=== PATIENT | male | born 1975 | race African-American/Black ===

== ENCOUNTER 2016-11-27 16:54 | Inpatient (IN) ==
[2016-11-27] MEDS ORDERED: ALBUTEROL/IPRATROPIUM 3 ML NEB RESP TX STA (17:15)
--- NOTE | 2016-11-27 17:46 | Emergency Department Note ---
Yoel Sepulveda Brooke, am scribing for, and in the presence of, Jamie Oleary MD 17:37. Mamta Sepulveda Phillip K, MD, personally performed the services described in this documentation, ascribed by Roseline Diallo in my presence, and it is both accurate and complete [id number] . Arrival - Arrival Chief Complaint: Shortness of Breath Stated Complaint: transfer from [facility], asthma ED Nursing Triage Note: PT TRANSFERRED FROM [facility] FOR EVALUATION OF ASTHMA EXACERBATION. PT HAS RECEIVED MULTIPLE ALBUTEROL NEBS SINCE 0900 THIS AM. ROOM AIR SAT 93% ON ARRIVAL. Mode of Arrival: Stretcher Limitations: No Limitations Source: Patient, EMS, RN Notes Reviewed Time Seen by Provider: 11/27/16 17:27 - History of Present Illness HPI Narrative: Patient is a 41 year old male brought into the ED by EMS, from [facility], with c/o asthma exacerbation. He has a history of asthma. Patient went to [facility] around 0600 this morning feeling short of breath and says they gave him two Albuterol treatments. He says he felt better after the treatments so they discharged him. Patient says a little while after arriving home, he went outside and become short of breath again so he went back to [facility]. His serum magnesium level was low so he was given two grams of magnesium. He was also given a dose of steroids and 250 Solu-Medrol. He says he has a a "little" cough but denies any fever. Patient says his last asthma exacerbation was about a year ago. He also has PMHx of HTN and NIDDM. His Primary Care Provider is Dr. Rodriguez. Onset (ago): day(s) (1) Allergies/Adverse Reactions: Allergies Allergy/AdvReac Type Severity Reaction Status Date / Time No Known Allergies Allergy Verified 11/27/16 17:07 Review of System - Review of System 12 point system: reviewed and no additional remarkable complaints except as stated - Review of System Constitutional: Absent: fever Respiratory: Present: cough, other (shortness of breath- asthma exacerbation). Absent: respiratory distress Skin: Absent: rash Medical,Surgical,& Family Hx - Medical History Cardio: History of: Hypertension Endocrine: History of: Diabetes Mellitus (NIDDM) Respiratory: History of: Asthma - Social History Smoking Status: Never smoker Frequency of Alcohol Use: None Type of Drug Use: None Exam Vital Signs: Vital Signs Temperature 97.8 F 11/27/16 17:29 Pulse Rate 109 H 11/27/16 17:33 Respiratory Rate 23 11/27/16 17:33 Blood Pressure 151/98 11/27/16 17:29 O2 Sat by Pulse Oximetry 93 L 11/27/16 16:54 - General General appearance: alert, in no apparent distress, obese (morbidly) - Head Head exam: Present: atraumatic, normocephalic - Eye Eye exam: Present: normal appearance, PERRL, EOMI - ENT ENT exam: Present: normal exam - Neck Neck exam: Present: normal inspection - Chest Chest inspection: Present: normal inspection, symmetric chest wall rise - Respiratory Respiratory exam: Present: wheezes (few expiratory wheezes) - Cardiovascular Cardiovascular exam: Present: normal rhythm, tachycardia, normal heart sounds - Abdominal Exam Abdominal exam: Present: soft. Absent: distention, tenderness - Extremities Exam Extremities exam: Present: normal inspection - Back Exam Back exam: Present: normal inspection - Neurological Exam Neurological exam: Present: alert, oriented X3 - Psychiatric Psychiatric exam: Present: normal affect, normal mood - Skin Skin exam: Present: warm, dry, intact, normal color Results - Labs Lab Results: I have reviewed the patients labs (Labs from [facility] were reviewed patient had a low magnesium otherwise his CBC was normal.) - Diagnostic Findings Procedure: Chest x-ray: image reviewed by me (X-rays at [facility] showed no abnormalities.) Disposition Clinical Impression: Asthma with exacerbation Case discussed with: patient Condition: Guarded Additional Instructions: Admit to the hospitalist.
[2016-11-27] MEDS ORDERED: ONDANSETRON 4 MG/2 ML VIAL IV PRN (17:57)
[2016-11-27] MEDS ORDERED: DEXTROSE 50% 25 GM/50 ML VIAL IV PRN ×2 (17:57)
[2016-11-27] MEDS ORDERED: ACETAMINOPHEN 325 MG TABLET PO PRN (17:57)
[2016-11-27] MEDS ORDERED: GLUCAGON 1 MG VIAL IM PRN ×2 (17:57)
[2016-11-27] MEDS ORDERED: LEVALBUTEROL 0.63 MG/3 ML NEB RESP TX PRN (18:01)
--- NOTE | 2016-11-27 18:06 | Hospitalist History & Physical ---
Assessment and Plan (1) Hypertension Status: Acute Current Visit: Yes (2) Diabetes Status: Acute Current Visit: Yes (3) Asthma with exacerbation Status: Acute Assessment and plan: Our plan for this patient 1. Admit patient to our service 2. Scheduled steroid doses 3. Home meds as appropriate 4. Pulmonary consult 5. Xopenex treatments instead of albuterol treatments secondary to tachycardia 6. Accu-Cheks before meals and at bedtime and sliding scale as needed since patient's been placed on steroids 7. counseled the patient on the need to not smoke marijuana Current Visit: Yes History of Present Illness Chief complaint: Shortness of breath History of present illness: Mr. Estevez is a 41 year old male with past medical history significant for asthma hypertension and diabetes who is in his normal state of health till this morning. Patient woke up short of breath and wheezing. He took a breathing treatment. Then took a shower soon thereafter he got short of breath again and had to take an additional breathing treatment. Patient went to [facility] and was given 2 more breathing treatments and discharged. He subsequently got short of breath after he got discharged and went back up to the hospital. At this time they gave him steroids. Patient was transferred to our hospital for further evaluation and pulmonary consult. I was consulted to admit him. Patient was wheezing upon arrival to our emergency room but currently it per my exam was no longer wheezing. Patient is satting 95% on 2 L room air. Patient is a very obese individual weighing 204 kg. We will admit him to a MedSurg floor from the emergency room. Allergies Allergy/AdvReac Type Severity Reaction Status Date / Time No Known Allergies Allergy Verified 11/27/16 17:07 Medical,Surgical,& Family Hx - Medical History Cardio: History of: Hypertension Endocrine: History of: Diabetes Mellitus (NIDDM) Respiratory: History of: Asthma - Surgical History Additional Surgical History: None - Family History Family History: Reports;: Family Cancer, Family Heart Disease - Social History Smoking Status: Never smoker Frequency of Alcohol Use: None Type of Drug Use: None 12 point system: reviewed and no additional remarkable complaints except as stated Exam - Constitutional Vitals: Period Temp Pulse Resp BP Sys/Zhao Pulse Ox Last 24 Hr 97.8 F-97.8 F 108-115 20-23 151-151/98-98 93 - General General appearance: alert, in no apparent distress, obese (morbidly) - Head Head exam: Present: atraumatic, normocephalic - Eye Eye exam: Present: normal appearance, PERRL, EOMI - ENT ENT exam: Present: normal exam - Neck Neck exam: Present: normal inspection - Chest Chest inspection: Present: normal inspection, symmetric chest wall rise - Respiratory Respiratory exam: Present: Grossly clear currently but was wheezing earlier per ER exam - Cardiovascular Cardiovascular exam: Present: normal rhythm, tachycardia, normal heart sounds - Abdominal Exam Abdominal exam: Present: soft. Absent: distention, tenderness - Extremities Exam Extremities exam: Present: normal inspection - Back Exam Back exam: Present: normal inspection - Neurological Exam Neurological exam: Present: alert, oriented X3 - Psychiatric Psychiatric exam: Present: normal affect, normal mood - Skin Skin exam: Present: warm, dry, intact, normal color Results - Labs Labs: Labs from outside facility glucose 96 BUN 11 creatinine 0.7 calcium 9.2 sodium 141 potassium 4 3.6 chloride 99 bicarb 32 white count 4.3 hemoglobin 14.5 hematocrit 46 platelets 222
--- NOTE | 2016-11-27 18:29 | XRay Report ---
XR chest 2V Indication: Shortness of breath. Comparison: Chest x-ray 11/27/2016 Technique: PA and lateral chest x-ray was performed. Findings: The heart size appears within normal limits. Pulmonary vasculature demonstrates no specific abnormality. Hilar structures demonstrate fairly symmetric appearance. The lungs appear clear. Bones and soft tissues demonstrate no evidence of acute pathology. Impression: 1. No active cardiopulmonary disease. 11/27/2016 6:22 PM PROCEDURE INTERPRETED AT [facility] DEPARTMENT OF RADIOLOGY Final Report Signed by: Dr. Sandip Nair
[2016-11-27] MEDS: LEVALBUTEROL 1.25 MG/3 ML NEB RESP TX SCH (19:00)
[2016-11-27] MEDS: INSULIN REGULAR 100 UNIT/ML SUBCUT SCH (21:20)
[2016-11-28] MEDS: methylPREDNISolone SOD SUC 125 MG/2 ML VIAL IV SCH ×2 (00:33→14:14)
[2016-11-28] MEDS: LEVALBUTEROL 1.25 MG/3 ML NEB RESP TX SCH ×4 (01:27→18:55)
[2016-11-28 07:48] LABS: Basophils % 0.1 % (0.0-0.8); Hematocrit 47.3 VOL% (42.0-52.0); Immature Granulocytes % 0.5 %; Immature Granulocytes Absolute 0.04 #; Lymphocytes # 0.8 10*3/uL (1.4-4.0); Lymphocytes % 9.4 % (21.2-54.2); Mean Corpuscular HGB Conc 31.7 GM/DL (32-36); Mean Corpuscular Hemoglobin 26 PG (27-34); Mean Platelet Volume 11.4 FL (9.6-12.0); Monocytes # 0.2 10*3/uL (0.11-0.8); Monocytes % 2.2 % (1.7-12.7); Neutrophils # 7.2 10*3/uL (1.4-7.4); Neutrophils % 87.8 % (38.7-73.9); Platelet Count 245 T/CUMM (130-400); Red Cell Distribution Width 16.5 % (9.3-17.3); White Blood Count 8.2 T/CUMM (4-12)
[2016-11-28 08:18] LABS: Albumin 4.1 G/DL (3.4-5.0); Bilirubin,Total 0.5 MG/DL (0.2-1.0); Calcium 9.5 MG/DL (8.5-10.1); Osmolality,Calculated 278.5 MOS/KG (273-304); Total Protein 8.1 G/DL (6.4-8.3)
[2016-11-28] MEDS: PANTOPRAZOLE 40 MG TABLET PO SCH (09:31)
[2016-11-28] MEDS: ENOXAPARIN 40 MG/0.4 ML SYRINGE SUBCUT SCH (09:31)
[2016-11-28] MEDS: INSULIN REGULAR 100 UNIT/ML SUBCUT SCH ×4 (09:32→20:31)
--- NOTE | 2016-11-28 11:05 | Hospitalist Progress Note ---
Assessment and Plan (1) Asthmatic bronchitis Status: Acute Assessment and plan: From the clinical picture this is instigated by environmental allergens. I did query the patient has to possibility of exposure to mold which he does not acknowledge. Allergic bronchospastic aspergillosis is one problem that can happen with asthmatic. That should be looked at longitudinally and the patient will be vigilant. Current Visit: Yes (2) Asthma with exacerbation Status: Acute Assessment and plan: Patient will continue on aggressive beta 2 agonists and ipratropium bromide and also systemic steroids with Solu-Medrol IV. Add Singulair to his treatment because that may be what he will need for steroid reduction in his treatment. His body habitus puts him at risk for possible sleep apnea which does not seem to be in the picture of oral diagnoses he has. Get him out of bed to chair and ambulate possibly we will send him home in the next 24-48 hrs. Current Visit: Yes (3) Hypertension Status: Acute Assessment and plan: Resume home medication Current Visit: Yes (4) Diabetes Status: Acute Assessment and plan: Resume home medications, point of care should sugars should be done at mealtime and nightly. We use intermediate insulin for coverage. I expect sugars to be higher now that he is on Solu-Medrol. Current Visit: Yes Qualifiers: Diabetes mellitus type: type 2 Diabetes mellitus complication status: without complication Diabetes mellitus terminal system operator insulin use: without terminal system operator use Qualified Code(s): E11.9 - Type 2 diabetes mellitus without complications Hospitalist: Subjective Interval history: Patient has been seen interviewed and examined and chart has been reviewed. Admitted in the last 24 hours;41-year-old gentleman with a history of asthma they treated him with 2 intervention was then slated to go home. reportedly he was admitted to the emergency room at [facility] by the time he got home his asthma kicked him again. That time went back to the hospital and was transferred here with status asthmaticus. Has history of asthma never been told he had COPD. At home he is on the nebulized albuterol and ipratropium bromide also MDI albuterol and uses Advair. Reports going to the emergency room of this 3 times a year is been admitted to the hospital before but does not require intubation. He is not on Singulair Exam - Constitutional Vitals: Period Temp Pulse Resp BP Sys/Zhao Pulse Ox Last 24 Hr 98.1 F-99.3 F 76-108 16-25 129-147/68-108 89-100 General appearance: morbidly obese - Head Head exam: Present: normocephalic, atraumatic - Eye Eye exam: Present: EOMI Pupils: Present: RADHA - ENT ENT exam: Present: normal exam - Neck Neck exam: Present: normal inspection - Respiratory Respiratory exam: Present: clear to auscultation bilaterally - Cardiovascular Cardiovascular exam: Present: regular rate and rhythm - GI/Abdominal GI/Abdominal exam: Present: normal bowel sounds, soft - Extremities Exam Extremities exam: Present: full ROM - Back Exam Back exam: Present: normal inspection - Neurological Exam Neurological exam: Present: alert, oriented X3, CN II-XII intact - Psychiatric Psychiatric exam: Present: normal affect, normal mood - Skin Skin exam: Present: normal color, warm, dry Results - Labs CBC & BMP: 11/28/16 07:33 11/28/16 07:33 Lab Results: I have reviewed the past 24 hour labs
--- NOTE | 2016-11-28 20:47 | Pulmonology Consult Note ---
Assessment and Plan (1) Obstructive sleep apnea Status: Acute Assessment and plan: Patient is a very large man and likely does have some obstructive sleep apnea. At some point he probably needs to have this investigated. Current Visit: Yes (2) Asthma with exacerbation Status: Acute Assessment and plan: The patient came in with a mild asthma exacerbation and is doing better now. He probably needs to take more inhaled steroids regularly. Current Visit: Yes (3) Hypertension Status: Acute Assessment and plan: His blood pressure and heart rate have been stable Current Visit: Yes (4) Diabetes Status: Acute Assessment and plan: His glucoses have been monitored and was 103 this morning. 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 Estevez is a 41 year old black male has a history of hypertension, diabetes, and is very overweight. He said he had asthma as a child and has had some problems off and on over the years. He apparently woke up yesterday tightness chest had a couple breathing treatments and did not get better. He came to the emergency room and still did not get any better so he is admitted for further treatment. He is not coughing up a lot of sputum or having any fever. He says he is feeling better now. The patient says he uses Advair at home but only takes it once a day. He has a nebulizer that he will use Ventolin fairly frequently. He has a rescue inhaler that he rarely uses. He says he usually does have a couple flareups a year. He is a lifetime non- smoker but works at the [employer]. He is a very large man but has never been tested for sleep apnea. He says he is breathing a little better now. Allergies Allergy/AdvReac Type Severity Reaction Status Date / Time No Known Allergies Allergy Verified 11/27/16 17:07 - Constitutional Constitutional: Present: weight gain. Absent: chills, fatigue, fever(s), weight loss - EENT Eyes: Absent: loss of vision Ears: Absent: decreased hearing Nose, mouth and throat: Absent: dysphagia, headache(s), sinus pressure - Cardiovascular Cardiovascular: Absent: chest pain at rest, chest pain with activity, edema, orthopnea, palpitations, PND - Respiratory Respiratory: Present: cough, dyspnea, wheezing. Absent: pain on inspiration, change in phlegm color - Gastrointestinal Gastrointestinal: Absent: abdominal pain, change in bowel habits, dysphagia, nausea, vomiting - Genitourinary Genitourinary: Absent: difficulty urinating, dysuria, nocturia, urinary frequency - Musculoskeletal Musculoskeletal: Absent: arthralgias, joint swelling - Neurological Neurological: Absent: abnormal speech, focal weakness, paresthesias - Psychiatric Psychiatric: Absent: anxiety Exam (Pulmonay) H&P - Constitutional Vitals: Period Temp Pulse Resp BP Sys/Zhao Pulse Ox Last 24 Hr 97.2 F-99.1 F 74-108 16-25 128-138/66-82 89-100 General appearance: no acute distress, morbidly obese - Head Head exam: Present: normal inspection, normocephalic - Eye Eye exam: Present: EOMI. Absent: scleral icterus - ENT ENT exam: Present: other (He has a class II Mallampati exam and no sinus tenderness) - Neck Neck exam: Present: normal inspection. Absent: lymphadenopathy, thyromegaly - Respiratory Respiratory exam: Present: prolonged expiratory phase, wheezes (He does have faint wheezing). Absent: accessory muscle use - Cardiovascular Cardiovascular exam: Present: regular rate and rhythm, tachycardia. Absent: gallop, systolic murmur - GI/Abdominal GI/Abdominal exam: Present: normal bowel sounds, soft. Absent: organomegaly, tenderness - Extremities Exam Extremities exam: Absent: calf tenderness, edema - Neurological Exam Neurological exam: Present: alert, oriented X3, CN II-XII intact - Psychiatric Psychiatric exam: Present: normal affect, normal mood - Skin Skin exam: Present: warm, dry Medical,Surgical,& Family Hx - Medical History Cardio: History of: Hypertension Psychological: No history of: Anxiety Disorders, ADHD, Behavior Problems, Bipolar Disorder, Depression, Previous Suicide Attempt, Psychiatric/Substance Abuse Tx, Schizophrenia, Violent Behavior, Psychiatric Problems Endocrine: History of: Diabetes Mellitus (NIDDM) Respiratory: History of: Asthma - Surgical History Abdominal Surgeries: Patient denies: Abdominal Surgery - Family History Family History: Reports;: Family Cancer, Family Heart Disease - Social History Smoking Status: Never smoker Frequency of Alcohol Use: Occasionally Type of Drug Use: None Results - Labs CBC & BMP: 11/28/16 07:33 11/28/16 07:33 - Diagnostic Findings Procedure: Chest x-ray: image reviewed by me, report reviewed by me (Chest x- ray shows mild cardiomegaly but his lung field are clear.)
[2016-11-28] MEDS ORDERED: MONTELUKAST 10 MG TABLET PO SCH (21:00)
[2016-11-28] MEDS: FLUTICASONE/SALMETEROL 500-50 DISKUS 14 DOSE INH SCH (21:29)
[2016-11-29] MEDS: LEVALBUTEROL 1.25 MG/3 ML NEB RESP TX SCH ×3 (00:10→14:01)
[2016-11-29] MEDS: methylPREDNISolone SOD SUC 125 MG/2 ML VIAL IV SCH ×2 (00:46→13:23)
[2016-11-29] MEDS: FLUTICASONE/SALMETEROL 500-50 DISKUS 14 DOSE INH SCH (08:49)
[2016-11-29] MEDS: ENOXAPARIN 40 MG/0.4 ML SYRINGE SUBCUT SCH (08:50)
[2016-11-29] MEDS: PANTOPRAZOLE 40 MG TABLET PO SCH (08:50)
[2016-11-29] MEDS: INSULIN REGULAR 100 UNIT/ML SUBCUT SCH ×2 (08:50→13:23)
--- NOTE | 2016-11-29 09:11 | Pulmonology Progress Note ---
Pulmonary - PN: Subj Interval history: Patient is a 41-year-old black man that is overweight with hypertension and diabetes. He has had chronic asthma and came in with a mild exacerbation. He is doing much better now feels like his coughing and wheezing are better. He is walking around and not short of breath now. Overall he says he feels better. Exam (Progress Note) - Constitutional Vitals: Period Temp Pulse Resp BP Sys/Zhao Pulse Ox Last 24 Hr 97.2 F-98.5 F 59-94 18-20 121-136/55-81 94-100 Exam: General appearance: no acute distress, morbidly obese, he looks comfortable and in no distress. - Head Head exam: Present: normal inspection, normocephalic - Eye Eye exam: Present: EOMI. Absent: scleral icterus - ENT ENT exam: Present: other (He has a class II Mallampati exam and no sinus tenderness) - Neck Neck exam: Present: normal inspection. Absent: lymphadenopathy, thyromegaly - Respiratory Respiratory exam: Present: His lungs have good breath sounds bilaterally is moving air fairly well without any wheezing. - Cardiovascular Cardiovascular exam: Present: regular rate and rhythm, tachycardia. Absent: gallop, systolic murmur - GI/Abdominal GI/Abdominal exam: Present: normal bowel sounds, soft. Absent: organomegaly, tenderness - Extremities Exam Extremities exam: Absent: calf tenderness, edema - Neurological Exam Neurological exam: Present: alert, oriented X3, CN II-XII intact, no focal deficits - Psychiatric Psychiatric exam: Present: normal affect, normal mood - Skin Skin exam: Present: warm, dry Results - Labs CBC & BMP: 11/28/16 07:33 11/28/16 07:33 Assessment and Plan (1) Obstructive sleep apnea Status: Acute Assessment and plan: Patient is a very large man and likely does have some obstructive sleep apnea. At some point he probably needs to have this investigated. Current Visit: Yes (2) Asthma with exacerbation Status: Acute Assessment and plan: The patient came in with a mild asthma exacerbation and is doing better now. His lungs are clear to up fairly well. He definitely needs to stay on inhaled steroids. We will continue Advair for now. He can probably go home at any time. Current Visit: Yes (3) Hypertension Status: Acute Assessment and plan: His blood pressure and heart rate have been stable Current Visit: Yes (4) Diabetes Status: Acute Assessment and plan: His glucoses have been monitored and was 106 this morning. Current Visit: Yes Qualifiers: Diabetes mellitus type: type 2 Diabetes mellitus complication status: without complication Diabetes mellitus care home insulin use: without care home use Qualified Code(s): E11.9 - Type 2 diabetes mellitus without complications
--- NOTE | 2016-11-29 11:03 | Discharge Summary ---
<Poncho Nieves - Last Filed: 11/29/16 10:53> Hospital Course - Hospital Course Hospital Course: Mr. Estevez is a 41-year-old male who was admitted on 11/27/2016 through the [place] ED with acute asthma exacerbation. Patient was admitted to [facility] floor and treated with aggressive beta-2 agonist and ipratropium bromide as well as systemic steroids including Solu-Medrol IV. Singulair was added to his treatment plan in anticipation of steroid reduction. Pulmonology was consulted to assist with asthma exacerbation management. The remainder of the patient's hospital course was highlighted by managing his hypertension and diabetes. We use intermittent insulin coverage per sliding scale protocol to manage. Patient was counseled that his body habitus puts him at risk for increased exacerbations as well as possible sleep apnea which does not seem to be in the picture of any current diagnoses that he has. At this time the patient is stable for discharge. He was discharged home on 11/29/2016 with the following new medications: Arformoterol, budesonide, levalbuterol nebulizer, methylprednisolone, Singulair. Diagnosis - Discharge Diagnosis (1) Asthmatic bronchitis Status: Acute (2) Asthma with exacerbation Status: Acute (3) Hypertension Status: Acute (4) Diabetes Status: Acute Discharge Plan - Discharge Data Disposition: Disch To Home/Self Care Condition at Discharge: Stable Discharge Diet: heart healthy Activity: resume usual activities as tolerated Hygiene: no restrictions Weight Bearing at Discharge: full weight bearing Driving: no restrictions Contact your physician if you experience:: fever over 101, Nausea/Vomiting, Shortness of breath - Discharge Medications New Arformoterol Neb [Brovana] 15 mcg RESP TX RT BID #60 neb Budesonide [Budesonide Neb Soln] 0.5 mg RESP TX BID #60 neb Levalbuterol Neb [Xopenex Neb] 1.25 mg RESP TX RT Q6H #120 units methylPREDNISolone DOSEPAK [Medrol Dosepak] 4 mg PO DIRECTED #1 pack Montelukast Tab [Singulair Tab] 10 mg PO BEDTIME #30 tablet - Follow Up or Referral - Forms/Instructions Instructions: Bronchiolitis (DC), Asthma (DC), Hypertension (DC) Exam - Constitutional Vitals: Period Temp Pulse Resp BP Sys/Zhao Pulse Ox Last 24 Hr 98 F 79-97 16-18 128/63 96-99 General appearance: morbidly obese - Head Head exam: Present: normal inspection, normocephalic - Eye Eye exam: Present: EOMI Pupils: Present: RADHA - ENT ENT exam: Present: normal exam - Neck Neck exam: Present: normal inspection - Respiratory Respiratory exam: Present: clear to auscultation bilaterally, other (No wheezing ) - Cardiovascular Cardiovascular exam: Present: regular rate and rhythm - GI/Abdominal GI/Abdominal exam: Present: normal bowel sounds, soft - Extremities Exam Extremities exam: Present: full ROM - Back Exam Back exam: Present: normal inspection - Neurological Exam Neurological exam: Present: alert, oriented X3, normal gait, CN II-XII intact - Psychiatric Psychiatric exam: Present: normal affect, normal mood - Skin Skin exam: Present: normal color, warm, dry Discharge Results Labs on day of discharge: Labs from last 24 hours 11/29/16 11:07 POC Glucose 112 H DS: Provider Date of admission: 11/27/16 17:43 Primary care physician: . No PCP Attending physician on admission: Jerry Shukla MD Consults: 11/27/16 17:57 Consult to Physician [CONS] Routine Comment: Consulting Provider: Consult to Specialist Group: Pulmonology When should Consulting Provider be notified: In am Consult to Physician [CONS] Routine Comment: Consulting Provider: Danny Gaines Consult to Specialist Group: Pulmonology Person Notified: NOY Date Notified: 11/28/16 Time Notified: 09:51 11/28/16 10:06 Consult to Case Mgmt/Social Srvs [CONS] Routine Reason for Case Mgmt/Social Srvs: Equipment Consult Comment: nebulizer Discharging clinician: Poncho Nieves MD <Catrachito Moreno - Last Filed: 11/30/16 10:37> Hospital Course - Time spent with patient Time with patient DS: Greater than 30 minutes DS: Provider Expected date of discharge: 11/29/16
[2016-11-29 12:00] VITALS: BP 128/63
== END 2016-11-29 16:00 | disposition home or self-care (01) | DRG 202 ==
LOC: EDBD → EDUNIT# → N.ED 16:54 → SUATTDRO 17:43 → N.EDINP 17:43 → N.5E 19:57
PROVIDERS: ADMIT Internal Medicine; ATTEND Internal Medicine Infectious Disease

== ENCOUNTER 2017-04-13 21:03 | Inpatient (IN) ==
[2017-04-13] MEDS ORDERED: ONDANSETRON 4 MG/2 ML VIAL IV STA (21:46)
[2017-04-13] MEDS ORDERED: HYDROmorphone 2 MG/1 ML VIAL IV STA (21:46)
[2017-04-13] MEDS ORDERED: KETOROLAC 30 MG/1 ML VIAL IV STA (21:50)
[2017-04-13] MEDS ORDERED: ONDANSETRON 4 MG/2 ML VIAL ONE (22:03)
[2017-04-13] MEDS ORDERED: KETOROLAC 30 MG/1 ML VIAL ONE (22:03)
--- NOTE | 2017-04-13 22:25 | Emergency Department Note ---
ICharlene Brittany, am scribing for, and in the presence of, Suellen Martinez DO 22: 17. IJuan Debra, DO, personally performed the services described in this documentation, ascribed by Elana Chang in my presence, and it is both accurate and complete . Arrival - Arrival Chief Complaint: Abdominal / Flank Pain Stated Complaint: [facility] from [facility] for cat [facility] ED Nursing Triage Note: pt to triage with c/o abdominal pain. pt denies other complaints. pt was seen at [facility] earlier today by dr. ramirez and was told he was 32 lbs to heavy for their ct machine. Mode of Arrival: Ambulatory Limitations: No Limitations Source: Patient - History of Present Illness HPI Narrative: This is a 41 y/o morbidly obese male,who presents to the ED with c/o abdominal pain which started yesterday. He states since yesterday the pain has increased in strength. He was seen earlier today at [facility] and had labs drawn which reads as follows: Glucose, Serum 92 BUN 12 Creatinine, Serum 0.8 Calcium -133 Potassium 3.5 Chloride, Serum 101 Bicarbonate 31 Anion Gap -4.3 Protein, Total 7.3 Albumin, Serum 3.6 Bilirubin, Total 0.30 Bilirubin, Direct <0.05 Alkaline Phosphatase 66 ALT 23 AST 21 Gloublin 4.2 A/G ratio -0.9 Lipase 76 WBC count 6.1 RBC count 5.17 HGB -13.9 HCT 43.2 MCV 83.6 MCH -26.9 MCHC 32.2 RDW +16.6 Platelet 230 MPV 11.0 Neutrophils 50.5 Lymphocytes 36.8 Monocytes +10.1 Eosinophils 2.1 Basophils 0.5 Neutrophils, Absolute 3.10 Lymphocytes, Absolute 2.26 He denies any vomiting or diarrhea. Pt has no other complaints/pain in the ED at this time. Pt has a PMhx of NIDDM, HTN, and asthma. Pt denies a surgical hx. Pt denies a family medical Hx. Pt uses marijuana, but denies the use of tobacco products and alcohol. Onset (ago): day(s) (Started yesterday) Consistency: constant Severity: moderate Allergies/Adverse Reactions: Allergies Allergy/AdvReac Type Severity Reaction Status Date / Time No Known Allergies Allergy Verified 04/13/17 21:15 Home Medications: Home Medications Medication Instructions Recorded Confirmed Type Arformoterol Neb [Brovana] 15 mcg RESP TX RT BID #60 neb 11/29/16 Rx Budesonide [Budesonide Neb Soln] 0.5 mg RESP TX BID #60 neb 11/29/16 Rx Levalbuterol Neb [Xopenex Neb] 1.25 mg RESP TX RT Q6H #120 units 11/29/16 Rx Montelukast Tab [Singulair Tab] 10 mg PO BEDTIME #30 tablet 11/29/16 Rx methylPREDNISolone DOSEPAK [Medrol 4 mg PO DIRECTED #1 pack 11/29/16 Rx Dosepak] Review of System - Review of System 12 point system: reviewed and no additional remarkable complaints except as stated - Review of System Gastrointestinal: Present: abdominal pain. Absent: nausea, vomiting, diarrhea Medical,Surgical,& Family Hx - Medical History Cardio: History of: Hypertension Psychological: No history of: Anxiety Disorders, ADHD, Behavior Problems, Bipolar Disorder, Depression, Previous Suicide Attempt, Psychiatric/Substance Abuse Tx, Schizophrenia, Violent Behavior, Psychiatric Problems Endocrine: History of: Diabetes Mellitus (NIDDM) Respiratory: History of: Asthma - Surgical History Abdominal Surgeries: Patient denies: Abdominal Surgery - Social History Smoking Status: Never smoker Frequency of Alcohol Use: None Type of Drug Use: Marijuana Exam Vital Signs: Vital Signs Temperature 98.1 F 04/13/17 21:06 Pulse Rate 80 04/13/17 21:06 Respiratory Rate 16 04/13/17 21:06 Blood Pressure 151/88 04/13/17 21:06 O2 Sat by Pulse Oximetry 96 04/13/17 21:06 - General General appearance: obese (Morbidly obese) - Head Head exam: Present: normal inspection - Eye Eye exam: Present: PERRL, EOMI. Absent: nystagmus, miosis, mydriasis - ENT ENT exam: Present: mucous membranes moist - Neck Neck exam: Present: full ROM, trachea midline. Absent: tenderness - Chest Chest inspection: Present: symmetric chest wall rise. Absent: tenderness - Respiratory Respiratory exam: Present: normal lung sounds bilaterally. Absent: respiratory distress - Cardiovascular Cardiovascular exam: Present: regular rate, normal rhythm, normal heart sounds. Absent: murmur, rubs, gallop, clicks, JVD - Abdominal Exam Abdominal exam: Present: soft, tenderness (Uppergastirc tenderness), normal bowel sounds, hernia - Rectal Exam Rectal exam: Present: deferred - Extremities Exam Extremities exam: Present: full ROM, normal capillary refill. Absent: tenderness, pedal edema - Back Exam Back exam: Absent: tenderness, muscle spasm, rashes - Neurological Exam Neurological exam: Present: alert, oriented X3, CN II-XII intact. Absent: motor sensory deficit - Psychiatric Psychiatric exam: Present: normal affect, normal mood. Absent: depressed, agitated, anxious, flat affect, manic - Skin Skin exam: Present: warm, dry, intact, normal color. Absent: rash, cyanosis, diaphoresis Course Course Narrative: spoke with DR Campos who will admit pt and see in the am. pt is stable at this time Results - Diagnostic Findings Procedure: CT Abdomen and Pelvis: report reviewed by me (probable incarcerated hernia) Disposition Clinical Impression: Incarcerated hernia Case discussed with: patient, patient's family Disposition: Still a Patient Condition: Stable Time of Disposition: 23:10
[2017-04-13] MEDS ORDERED: ONDANSETRON 4 MG/2 ML VIAL IV PRN (23:11)
[2017-04-14] MEDS: DEXTROSE 5% NACL 0.45% 1,000 ML IV SCH ×4 (01:05→19:47)
[2017-04-14] MEDS ORDERED: ceFAZolin 2,000 MG in PREMIX 1 EACH IV ONE (06:58)
--- NOTE | 2017-04-14 07:03 | General Surg History&Physical ---
Assessment and Plan (1) Incarcerated hernia Status: Acute Assessment and plan: This patient has a hernia that is only partially reducible and does contain a loop of transverse colon. The patient is very tender over this area. There is no evidence of strangulation. Lab work from [place] was reviewed. I have recommended repair of this hernia to prevent strangulation of this part of his colon. I have discussed the risks, benefits, and alternatives of the operation , and the expected outcomes have been reviewed. Plan is for open repair of ventral hernia with mesh placement to reduce recurrence rate and have also discussed the possibility of repair of colon or resection of the involved colon if necessary. The patient understands all this and would like to proceed with the operation. Current Visit: Yes History of Present Illness Chief complaint: Abdominal pain History of present illness: Mr. Estevez is a 41 year old male who has a history of diabetes and asthma which she says are both controlled medically who presented to an outside hospital for abdominal pain and was transferred here because he was too large for the CT scanner. CT scan is here demonstrated a umbilical hernia that is incarcerated with a loop of colon within it. There is no evidence of strangulation. Patient was admitted for surgical management. Home Medications Medication Instructions Recorded Confirmed Type Albuterol Neb [Proventil Neb] 2.5 mg RESP TX Q4HR 04/14/17 04/14/17 History Fluticasone/Salmeterol 500-50 1 puff INH BID 04/14/17 04/14/17 History [Advair 500-50] metFORMIN [Glucophage] 500 mg PO DAILY 04/14/17 04/14/17 History valACYclovir [Valtrex] 500 mg PO BID 04/14/17 04/14/17 History Allergies Allergy/AdvReac Type Severity Reaction Status Date / Time No Known Allergies Allergy Verified 04/13/17 21:15 Medical,Surgical,& Family Hx - Medical History Cardio: History of: Hypertension Psychological: No history of: Anxiety Disorders, ADHD, Behavior Problems, Bipolar Disorder, Depression, Previous Suicide Attempt, Psychiatric/Substance Abuse Tx, Schizophrenia, Violent Behavior, Psychiatric Problems Endocrine: History of: Diabetes Mellitus (NIDDM) Respiratory: History of: Asthma - Surgical History Abdominal Surgeries: Patient denies: Abdominal Surgery - Family History Family History: Reports;: Family Cancer (aunts and uncles) - Social History Smoking Status: Never smoker Frequency of Alcohol Use: None Type of Drug Use: Marijuana Exam - Constitutional Vitals: Period Temp Pulse Resp BP Sys/Zhao Pulse Ox Last 24 Hr 97.5 F-98.1 F 63-80 16-18 139-160/75-88 96-98 General appearance: no acute distress, morbidly obese - Head Head exam: Present: normal inspection, normocephalic - Eye Eye exam: Present: EOMI Pupils: Present: RADHA - ENT ENT exam: Present: normal exam Mouth exam: Present: normal external inspection, normal voice - Neck Neck exam: Present: normal inspection, trachea midline - Respiratory Respiratory exam: Present: clear to auscultation bilaterally. Absent: accessory muscle use, chest wall tenderness - Cardiovascular Cardiovascular exam: Present: RRR. Absent: systolic murmur, tachycardia - GI/Abdominal GI/Abdominal exam: Present: normal bowel sounds, hernia (Partially reducible ventral abdominal wall hernia including the umbilicus), tenderness (There is focal tenderness over the patient's hernia.), soft. Absent: rebound - Extremities Exam Extremities exam: Present: normal inspection, normal capillary refill - Back Exam Back exam: Present: normal inspection - Neurological Exam Neurological exam: Present: alert, oriented X3 Speech: Present: normal - Skin Skin exam: Present: normal color, warm - Constitutional Constitutional: Present: as per HPI - EENT Nose, mouth and throat: Present: as per HPI - Cardiovascular Cardiovascular: Present: as per HPI - Respiratory Respiratory: Present: as per HPI - Gastrointestinal Gastrointestinal: Present: as per HPI - Genitourinary Genitourinary: Present: as per HPI - Musculoskeletal Musculoskeletal: Present: as per HPI - Neurological Neurological: Present: as per HPI - Endocrine Endocrine: Present: as per HPI Hematologic/Lymphatic: Present: as per HPI Results - Diagnostic Findings Procedure: CT Abdomen and Pelvis: image reviewed by me, report reviewed by me
[2017-04-14 07:40] LABS: Basophils % 0.4 % (0.0-0.8); Eosinophils # 0.2 10*3/uL (0.0-0.87); Eosinophils % 3.8 % (0.00-10.9); Hematocrit 41.7 VOL% (42.0-52.0); Hemoglobin 13.5 GM/DL (14.0-18.0); Lymphocytes # 1.9 10*3/uL (1.4-4.0); Lymphocytes % 41.6 % (21.2-54.2); Mean Corpuscular HGB Conc 32.4 GM/DL (32-36); Mean Corpuscular Hemoglobin 27 PG (27-34); Mean Corpuscular Volume 82.7 FL (87-102); Mean Platelet Volume 11.1 FL (9.6-12.0); Monocytes # 0.7 10*3/uL (0.11-0.8); Monocytes % 14.7 % (1.7-12.7); Neutrophils # 1.8 10*3/uL (1.4-7.4); Neutrophils % 39.5 % (38.7-73.9); Platelet Count 215 T/CUMM (130-400); Red Blood Count 5.04 MC/CUMM (3.8-5.5); Red Cell Distribution Width 15.9 % (9.3-17.3); White Blood Count 4.5 T/CUMM (4-12)
--- NOTE | 2017-04-14 08:52 | CT Report ---
Exam: CT abdomen and pelvis without intravenous contrast Clinical History: 41 years,Male, worsening abdominal pain, generalized Technique: Axial computed tomography images of the abdomen and pelvis without intravenous contrast. All CT scans at this facility use one or more dose reduction techniques. Automated exposure control, MA/KV adjustment per patient size (including targeted exam Square dose is matched to indication) or iterative reconstruction technique Comparison: No relevant comparisons Findings: Lower thorax: Small Bochdalek hernias bilaterally.. Abdomen: Liver: Unremarkable Gallbladder and bile ducts: Unremarkable. No calcified stones. No ductal dilatation. Pancreas: Pancreas is normal. Spleen: Spleen is normal. Adrenals: No adrenal mass. Kidneys and ureters: Nonobstructing right calyceal stones Stomach and bowel: No evidence of acute gastritis, colitis or enteritis. No bowel obstruction. Appendix: No primary or secondary signs to suggest appendicitis. Pelvis: Bladder: Unremarkable Reproductive: Unremarkable as visualized. Abdomen and pelvis: Intraperitoneal space: No pneumoperitoneum. No free intraperitoneal fluid Bones/joints: No acute osseous abnormality. Soft tissues: Umbilical hernia containing single loop of transverse colon with minimal stranding across the hernia defect, could not exclude early entrapment Vasculature: No aortic aneurysm. Lymph nodes: No adenopathy Impression: 1. Umbilical hernia containing single loop of transverse colon. Cannot exclude early entrapment. 2. Nephrolithiasis 3. Other findings as discussed above PROCEDURE INTERPRETED AT [facility] DEPARTMENT OF RADIOLOGY Final Report Signed by: Jeannine Singh MD
[2017-04-14] MEDS ORDERED: ALBUTEROL/IPRATROPIUM 3 ML NEB RESP TX ONE ×2 (09:59→13:15)
[2017-04-14] MEDS ORDERED: DEXAMETHASONE 10 MG/1 ML VIAL ONE (10:38)
[2017-04-14] MEDS ORDERED: PROPOFOL 200 MG/20 ML VIAL IV ONE (10:38)
[2017-04-14] MEDS ORDERED: ROCURONIUM 100 MG/10 ML VIAL IV ONE (10:38)
[2017-04-14] MEDS ORDERED: SUCCINYLCHOLINE 200 MG/10 ML VIAL ONE (10:38)
[2017-04-14] MEDS ORDERED: NEOSTIGMINE 10 MG/10 ML VIAL ONE (10:38)
[2017-04-14] MEDS ORDERED: LABETALOL 100 MG/20 ML VIAL IV ONE (10:38)
[2017-04-14] MEDS ORDERED: GLYCOPYRROLATE 0.4 MG/2 ML VIAL ONE (10:38)
[2017-04-14] MEDS ORDERED: ONDANSETRON 4 MG/2 ML VIAL ONE (10:38)
--- NOTE | 2017-04-14 13:00 | Operative Note ---
Date of procedure: 04/14/17 Pre-op diagnosis: Incarcerated ventral umbilical hernia Post-op diagnosis: same Procedure: Preoperative diagnosis Incarcerated ventral umbilical hernia containing colon Postoperative diagnosis Same Procedures performed 1. Ventral umbilical hernia repair with mesh 22 modifier Findings A small hernia defect was found with a loop of transverse colon protruding through along with omentum. Due to the patient's body habitus and the adhesions that were involved with the hernia this case took more than twice usual length of time and was extremely difficult was able to be done safely with tedious dissection and persistence. A 6 cm circular disc of coated peritoneal mesh was placed this was polypropylene mesh. It was sewn in with a parachute technique below the fascia and intraperitoneal onlay mesh technique was performed. The fascia was closed primarily on top of the mesh. A GLORIA drain was placed in the subcutaneous space above the fascia. Complications None apparent Specimen None Anesthesia GETA Blood loss Minimal Indications Incarcerated ventral umbilical hernia containing colon Description of procedure The patient was taken to the operating room and transferred to the operating table in the supine position. Pressure points were padded and SCDs were placed lower extremities. General endotracheal anesthesia was administered. The abdomen was prepped with chlorhexidine and draped sterilely. Preoperative antibiotics were administered, and a timeout was performed. A midline laparotomy incision was made around the umbilicus with a scalpel. Electrocautery was used to dissected down to the hernia sac which was dissected away from the subcutaneous tissues and down to the neck of the hernia at the fascial level. The hernia sac was then divided after the hernia sac was opened to ensure that the colon and omentum was viable and indeed it was. The hernia sac was amputated at the level of the fascia and I had to extend the fascial incision in a superior direction to allow reduction of the colon and omentum safely. The subcutaneous tissues were then dissected away from the fascia in order to allow adequate closure and parachute technique placement of a circular disc of intraperitoneal polypropylene coated mesh. Once the fascial edges were cleared off and the subcutaneous tissues a 6 cm piece of polypropylene intraperitoneal coated mesh was parachuted in with 0 Prolene sutures using an intraperitoneal onlay technique with parachute sutures. The mesh laid flat and took tension off the midline fascial closure which was then closed primarily after the Prolene sutures were tied down to secure the polypropylene disc. The midline fascia was closed with a running 0 PDS suture. A #10 GLORIA drain was placed through a separate stab incision in the right lower quadrant. GLORIA drain was sewn in with 3-0 nylon sutures. Again because of the patient's body size and difficulty with dissection in this case take more than twice usual length of time but was able to be done safely. The umbilicus was reapproximated to the fascia with a 3-0 Vicryl suture. A 3-0 Monocryl suture was then used to close the Karena's layer and the skin clips were used to close the skin. The GLORIA was hooked to bulb suction and a sterile dressing was applied. A compressive dressing was placed over the umbilicus. Abdominal binders were placed to assist with postoperative care. The patient was awakened from anesthesia and transferred to recovery. Postoperative plan Admit for observation Anesthesia: JUAN J Surgeon / Physician: Babatunde Campos Estimated blood loss: minimal Specimens: none sent Condition: stable Disposition: PACU Results - Labs CBC & BMP: 04/14/17 07:22 Discharge Plan - Discharge Medications No Action Fluticasone/Salmeterol 500-50 [Advair 500-50] 1 puff INH BID Albuterol Neb [Proventil Neb] 2.5 mg RESP TX Q4HR metFORMIN [Glucophage] 500 mg PO DAILY valACYclovir [Valtrex] 500 mg PO BID - Follow Up or Referral - Forms/Instructions
[2017-04-14] MEDS ORDERED: ONDANSETRON 4 MG/2 ML VIAL IV PRN ×2 (13:16→13:26)
[2017-04-14] MEDS ORDERED: HYDROmorphone 2 MG/1 ML VIAL IV PRN (13:26)
[2017-04-14] MEDS: HYDROmorphone 2 MG/1 ML VIAL IV PRN ×5 (13:29→17:10)
[2017-04-14] MEDS ORDERED: LACTATED RINGERS 1,000 ML IV SCH ×2 (13:30)
--- NOTE | 2017-04-14 13:56 | Anesthesia Post-Op ---
Anesthesia Post OP - Post Ansesthetic Evaluation Patient seen in post op: Yes Resp: within normal limits CV: within normal limits Mental: within normal limits Temp: within normal limits [id number]: within normal limits Nausea and Vomiting: within normal limits Pain: within normal limits
[2017-04-14] MEDS ORDERED: SEVOFLURANE 1 UNIT/15 MINUTE INH ONE (13:59)
[2017-04-14] MEDS ORDERED: ACETAMINOPHEN 1,000 MG/100 ML VIAL IV ONE (14:00)
[2017-04-14] MEDS ORDERED: fentaNYL 100 MCG/2 ML VIAL ONE (14:00)
[2017-04-14] MEDS ORDERED: MIDAZOLAM 2 MG/2 ML VIAL ONE (14:00)
[2017-04-14] MEDS ORDERED: LACTATED RINGERS 1,000 ML IV ONE (14:00)
[2017-04-14] MEDS ORDERED: GLUCAGON 1 MG VIAL IM PRN (14:19)
[2017-04-14] MEDS ORDERED: ALBUTEROL 2.5 MG/3 ML NEB RESP TX SCH (14:19)
[2017-04-14] MEDS ORDERED: DEXTROSE 50% 25 GM/50 ML VIAL IV PRN (14:19)
[2017-04-14] MEDS: KETOROLAC 30 MG/1 ML VIAL IV SCH ×2 (14:46→20:18)
[2017-04-14] MEDS: INSULIN REGULAR 100 UNIT/ML SUBCUT SCH ×2 (17:06→21:28)
[2017-04-14] MEDS: ALBUTEROL 2.5 MG/3 ML NEB RESP TX SCH ×2 (19:42→23:37)
[2017-04-14] MEDS: valACYclovir 500 MG TABLET PO SCH (20:18)
[2017-04-14] MEDS: FLUTICASONE/SALMETEROL 500-50 DISKUS 14 DOSE INH SCH (20:18)
[2017-04-15] MEDS: DEXTROSE 5% NACL 0.45% 1,000 ML IV SCH (01:48)
[2017-04-15] MEDS: KETOROLAC 30 MG/1 ML VIAL IV SCH ×4 (01:48→20:54)
[2017-04-15] MEDS: ALBUTEROL 2.5 MG/3 ML NEB RESP TX SCH ×6 (03:00→23:14)
[2017-04-15] MEDS: INSULIN REGULAR 100 UNIT/ML SUBCUT SCH ×4 (08:47→21:00)
[2017-04-15] MEDS: FLUTICASONE/SALMETEROL 500-50 DISKUS 14 DOSE INH SCH ×2 (09:14→21:00)
[2017-04-15] MEDS: valACYclovir 500 MG TABLET PO SCH ×2 (09:14→20:55)
[2017-04-15] MEDS: HYDROmorphone 2 MG/1 ML VIAL IV PRN (09:18)
--- NOTE | 2017-04-15 09:46 | Event Note ---
This patient is doing well following ventral umbilical hernia repair with mesh on 04/14/2017 for incarcerated ventral umbilical hernia. He had about 40 cc of serosanguineous output from his GLORIA drain overnight. He is tolerating his diet. Pain is well controlled. On exam he is afebrile with some mild tachycardia and his abdomen is benign with expected tenderness and serosanguineous/ sanguinous GLORIA drain output. We will Hep-Lock his IV fluids today and continue pain management and ambulation for the next day with plans for discharge home tomorrow. We will also start her GLORIA drain teaching today.
[2017-04-16] MEDS: ALBUTEROL 2.5 MG/3 ML NEB RESP TX SCH ×3 (03:01→11:38)
[2017-04-16] MEDS: KETOROLAC 30 MG/1 ML VIAL IV SCH ×2 (03:22→08:57)
[2017-04-16] MEDS: INSULIN REGULAR 100 UNIT/ML SUBCUT SCH ×2 (07:59→11:05)
--- NOTE | 2017-04-16 08:41 | Discharge Summary ---
Hospital Course - Hospital Course Hospital Course: This patient was admitted with an incarcerated umbilical hernia containing a loop of transverse colon. This was repaired on 04/14/2017 with mesh. The patient did well postoperatively. We obtained teaching with GLORIA drain management and the patient was tolerating his diet with good pain control and return of bowel function and he was discharged home with follow-up in 1 week for drain evaluation. Diagnosis - Discharge Diagnosis (1) Incarcerated hernia Status: Acute Discharge Plan - Discharge Data Disposition: Disch To Home/Self Care Condition at Discharge: Stable Discharge Diet: diabetic diet Activity: no lifting Hygiene: may shower Weight Bearing at Discharge: weight bear as tolerated Driving: other (Do not drive or operate heavy machinery for at least 24 hours and after you are off of narcotic pain medications.) Contact your physician if you experience:: fever over 101, Difficulty voiding, Redness or swelling, Nausea/Vomiting, Shortness of breath, Bleeding, pain uncontrolled by pain medications Wound / Dressing Care Instructions: Strip the GLORIA drain 3 times daily. Record output daily. Maintain bulb suction. It is okay to shower but do not submerge your incision underwater. - Discharge Medications New HYDROcodone/ACETAMIN 7.5-325 [[place] 7.5-325] 1 tablet PO Q4H PRN #20 tablet PRN Reason: Pain Continue Fluticasone/Salmeterol 500-50 [Advair 500-50] 1 puff INH BID Albuterol Neb [Proventil Neb] 2.5 mg RESP TX Q4HR metFORMIN [Glucophage] 500 mg PO DAILY valACYclovir [Valtrex] 500 mg PO BID - Follow Up or Referral Follow Up: Babatunde Campos MD [Physician] - 1 Week - Forms/Instructions Exam - Constitutional Vitals: Period Temp Pulse Resp BP Sys/Zhao Pulse Ox Last 24 Hr 97.1 F-98.3 F 65-84 16-20 94-152/63-89 95-99 General appearance: morbidly obese - Head Head exam: Present: normal inspection, normocephalic - Eye Eye exam: Present: EOMI Pupils: Present: RADHA - ENT ENT exam: Present: normal exam - Neck Neck exam: Present: normal inspection - Respiratory Respiratory exam: Present: clear to auscultation bilaterally. Absent: accessory muscle use, chest wall tenderness - Cardiovascular Cardiovascular exam: Present: regular rate and rhythm. Absent: systolic murmur , tachycardia - GI/Abdominal GI/Abdominal exam: Present: normal bowel sounds, tenderness (Appropriate postoperative tenderness), soft, other (Incision is clean and dry with no drainage. The GLORIA drain is serosanguineous.). Absent: rebound - Extremities Exam Extremities exam: Present: normal inspection, normal capillary refill - Back Exam Back exam: Present: normal inspection - Neurological Exam Neurological exam: Present: alert, oriented X3 - Psychiatric Psychiatric exam: Present: normal affect, normal mood - Skin Skin exam: Present: normal color, warm Discharge Results Labs on day of discharge: Labs from last 24 hours 04/16/17 04/15/17 04/15/17 06:48 20:54 16:20 POC Glucose 88 110 H 117 H 04/15/17 11:47 POC Glucose 107 H DS: Provider Date of admission: 04/13/17 23:11 Primary care physician: . No PCP Attending physician on admission: Babatunde Campos MD Consults: 04/14/17 06:59 Consult to Anesthesiology [CONS] Routine Consulting Provider: Reason for Anesthesiology: Pre-op Clearance Discharging clinician: Babatunde Campos MD Expected date of discharge: 04/16/17
[2017-04-16] MEDS: valACYclovir 500 MG TABLET PO SCH (08:57)
[2017-04-16] MEDS: FLUTICASONE/SALMETEROL 500-50 DISKUS 14 DOSE INH SCH (08:59)
[2017-04-16 11:08] VITALS: BP 159/88
--- NOTE | 2017-04-16 11:24 | Pathology Report from [facility] ---
[facility] [place] ACCESSION # : [id number] PATIENT NAME : Marquis Carter ORDERING DR : Babatunde Campos MD CLINICAL HX: Incarcerated hernia POST-OP DX: Same SPECIMEN INFO: Hernia sac GROSS DESCRIPTION: Received in formalin labeled MARQUIS CARTER is a 16.8 x 5 cm irregular shaped yellow lyle-brown fibromembranous tissue fragment. [employer] sections are submitted in one cassette. DIAGNOSIS FOR MARQUIS CARTER: HERNIA SAC: Fibrous connective tissue and adipose tissue consistent with clinical history of hernia sac. COLLECTED DATE: 04/15/2017 [facility] [place] REPORT DATE: 04/16/2017 ELECTRONICALLY SIGNED BY: Joellen Kelly III, M.D. 04/16/2017 - 10:29:08 MARKO
== END 2017-04-16 13:30 | disposition home or self-care (01) | DRG 354 ==
LOC: N.ED 21:03 → N.EDINP 23:11 → N.3E 23:30
PROVIDERS: ADMIT Surgery; ATTEND Surgery

== ENCOUNTER 2020-06-18 19:45 | Observation (INO) ==
[2020-06-18] MEDS ORDERED: VANCOMYCIN INJ 1,000 MG in SODIUM CHLORIDE 0.9% 250 ML IV STA (23:17)
[2020-06-18] MEDS ORDERED: CLINDAMYCIN INJ 600 MG in PREMIX 1 EACH IV STA (23:17)
[2020-06-18] MEDS ORDERED: ALBUTEROL/IPRATROPIUM 3 ML NEB RESP TX STA (23:24)
[2020-06-18 23:36] LABS: Basophils # 0.1 10*3/uL (0.0-0.2); Basophils % 0.6 % (0.0-0.8); Eosinophils % 0.1 % (0.00-10.9); Hematocrit 43.4 VOL% (42.0-52.0); Hemoglobin 14.1 GM/DL (14.0-18.0); Immature Granulocytes % 0.3 %; Immature Granulocytes Absolute 0.03 #; Lymphocytes # 1.5 10*3/uL (1.4-4.0); Lymphocytes % 17.9 % (21.2-54.2); Mean Corpuscular HGB Conc 32.5 GM/DL (32-36); Mean Corpuscular Volume 84.3 FL (87-102); Mean Platelet Volume 10.3 FL (9.6-12.0); Monocytes % 9.4 % (1.7-12.7); Neutrophils % 71.7 % (38.7-73.9); Platelet Count 228 T/CUMM (130-400); Red Blood Count 5.15 MC/CUMM (3.8-5.5); Red Cell Distribution Width 16.5 % (9.3-17.3); White Blood Count 8.6 T/CUMM (4-12)
[2020-06-18 23:58] LABS: Albumin 3.8 G/DL (3.4-5.0); Bilirubin,Total 0.6 MG/DL (0.2-1.0); Calcium 8.7 MG/DL (8.5-10.1); Total Protein 7.9 G/DL (6.4-8.3)
[2020-06-19] MEDS ORDERED: ACETAMINOPHEN 325 MG TABLET PO PRN (00:30)
[2020-06-19] MEDS ORDERED: GLUCAGON 1 MG VIAL IM PRN ×2 (00:30→12:37)
[2020-06-19] MEDS ORDERED: NICOTINE 21 MG/24 HR PATCH TRANSDERM PRN (00:30)
[2020-06-19] MEDS ORDERED: ONDANSETRON 4 MG/2 ML VIAL IV PRN (00:30)
[2020-06-19] MEDS ORDERED: guaiFENesin/DM ER 600-30 MG TABLET PO PRN (00:30)
[2020-06-19] MEDS ORDERED: hydrALAZINE 20 MG/1 ML VIAL IV PRN (00:30)
[2020-06-19] MEDS ORDERED: DEXTROSE 50% 25 GM/50 ML VIAL IV PRN ×2 (00:30→12:37)
[2020-06-19] MEDS ORDERED: MORPHINE 4 MG/1 ML VIAL IV PRN (00:30)
[2020-06-19] MEDS: CLINDAMYCIN INJ 600 MG in PREMIX 1 EACH IV SCH ×2 (06:28→17:45)
[2020-06-19] MEDS ORDERED: ceFAZolin 2,000 MG in SODIUM CHLORIDE 0.9% 100 ML IV ONE (07:39)
[2020-06-19] MEDS: INSULIN REGULAR 100 UNIT/ML SUBCUT SCH ×4 (08:03→23:40)
[2020-06-19] MEDS: ALBUTEROL 2.5 MG/3 ML NEB RESP TX PRN ×4 (08:04→22:45)
[2020-06-19] MEDS ORDERED: ONDANSETRON 4 MG/2 ML VIAL ONE (12:01)
[2020-06-19] MEDS ORDERED: LIDOCAINE 2% 5 ML VIAL ONE (12:01)
[2020-06-19] MEDS ORDERED: propofoL 200 MG/20 ML VIAL IV ONE (12:01)
[2020-06-19] MEDS ORDERED: fentaNYL 100 MCG/2 ML VIAL ONE ×2 (12:01→12:27)
[2020-06-19] MEDS ORDERED: ROCURONIUM 50 MG/5 ML VIAL IV ONE (12:01)
[2020-06-19] MEDS ORDERED: SUCCINYLCHOLINE 200 MG/10 ML VIAL ONE (12:01)
[2020-06-19] MEDS ORDERED: MIDAZOLAM 2 MG/2 ML VIAL ONE (12:02)
[2020-06-19] MEDS ORDERED: ACETAMINOPHEN 1,000 MG/100 ML VIAL IV ONE (12:27)
[2020-06-19] MEDS ORDERED: BUPIVACAINE 0.5% 50 ML VIAL ONE (12:32)
[2020-06-19] MEDS ORDERED: oxyCODONE/ACETAMINOPHEN 5-325 MG TABLET PO PRN (12:37)
[2020-06-19] MEDS ORDERED: SEVOFLURANE 1 UNIT/15 MINUTE INH ONE (12:43)
[2020-06-19] MEDS ORDERED: HYDROmorphone 2 MG/1 ML VIAL ONE (12:51)
[2020-06-19] MEDS: HYDROmorphone 2 MG/1 ML VIAL IV PRN ×4 (12:51→13:06)
[2020-06-19] MEDS: VANCOMYCIN INJ 2,000 MG in SODIUM CHLORIDE 0.9% 500 ML IV SCH ×3 (13:24→20:41)
[2020-06-20] MEDS: CLINDAMYCIN INJ 600 MG in PREMIX 1 EACH IV SCH ×2 (00:45→08:22)
[2020-06-20] MEDS: ALBUTEROL 2.5 MG/3 ML NEB RESP TX PRN ×3 (04:45→11:57)
[2020-06-20 05:53] LABS: Basophils % 0.5 % (0.0-0.8); Eosinophils % 0.5 % (0.00-10.9); Hematocrit 40.2 VOL% (42.0-52.0); Hemoglobin 12.8 GM/DL (14.0-18.0); Immature Granulocytes % 0.3 %; Immature Granulocytes Absolute 0.02 #; Lymphocytes # 1.7 10*3/uL (1.4-4.0); Lymphocytes % 25.3 % (21.2-54.2); Mean Corpuscular HGB Conc 31.8 GM/DL (32-36); Mean Corpuscular Volume 83.8 FL (87-102); Monocytes % 12.4 % (1.7-12.7); Platelet Count 208 T/CUMM (130-400); Red Cell Distribution Width 16.3 % (9.3-17.3); White Blood Count 6.6 T/CUMM (4-12)
[2020-06-20 06:09] LABS: Calcium 8.4 MG/DL (8.5-10.1); Osmolality,Calculated 270.8 MOS/KG (273-304)
[2020-06-20] MEDS: INSULIN REGULAR 100 UNIT/ML SUBCUT SCH ×2 (07:35→12:01)
[2020-06-20] MEDS: VANCOMYCIN INJ 2,000 MG in SODIUM CHLORIDE 0.9% 500 ML IV SCH (08:22)
[2020-06-20] MEDS ORDERED: DEXTROSE 50% 25 GM/50 ML VIAL IV PRN (11:25)
[2020-06-20] MEDS ORDERED: GLUCAGON 1 MG VIAL IM PRN (11:25)
[2020-06-20 12:26] VITALS: BP 131/80
== END 2020-06-20 13:10 | disposition home or self-care (01) ==
LOC: N.EDINP 19:45 → N.ED 19:45 → N.5E 06-19 01:05
PROVIDERS: ADMIT Emergency Medicine; ATTEND Emergency Medicine